=== PATIENT | female | born 1935 | race Caucasian/White ===

== ENCOUNTER 2025-04-08 07:40 | Emergency (ER) | payer MEDICARE ==
[~2025-04-08] VITALS: Ht 152.4 cm; Wt 48.1 kg
[2025-04-08] MEDS ORDERED: Ondansetron Hydrochloride 4 MG/2 ML VIAL IV ONE (07:50)
[2025-04-08 08:03] LABS: BASO # 0.0 10*3/uL (0.0-0.1); BASO % 0.8 % (0.0-1.0); EOS # 0.1 10*3/uL (0.0-0.4); EOS % 2.3 % (1.0-4.0); MEAN CELL VOLUME 99.7 fl (81.0-99.0); MEAN CORPUSCULAR HGB 32.3 pg (27.0-31.0); MEAN PLATELET VOLUME 9.7 fl (9.6-12.3); MONO # 0.4 10*3/uL (0.1-1.0); MONO % 8.0 % (3.0-9.0); NEUT # 3.2 10*3/uL (2.3-7.9); NEUT % 60.9 % (47.0-73.0); NUCLEATED RED BLOOD CELL 0.0 % (0.0-0.0); NUCLEATED RED BLOOD CELL 0.0 10*3/uL (0.0-0.0); PLATELET COUNT AUTOMATED 216 10*3/uL (130-400); RED CELL DISTRI WIDTH 13.7 % (0-14.5)
[2025-04-08 08:19] LABS: BUN 31.0 mg/dl (9-23)
[2025-04-08] MEDS ORDERED: SODIUM CHLORIDE 0.9% 500 ML IV ONE (08:30)
[2025-04-08] MEDS ORDERED: SIMVASTATIN40 MG PO (10:03)
[2025-04-08] MEDS ORDERED: AMLODIPINE BESYL5 MG PO (10:03)
[2025-04-08] MEDS ORDERED: BENAZEPRIL10 MG PO (10:03)
== END 2025-04-08 11:14 | disposition short-term general hospital (02) ==
LOC: ED 07:40
PROVIDERS: Emergency Medicine
DX: S72.001A Fracture of unspecified part of neck of right femur, initial encounter for closed fracture (principal); W19.XXXA Unspecified fall, initial encounter; Y93.89 Activity, other specified; Y92.89 Other specified places as the place of occurrence of the external cause; Y99.8 Other external cause status